=== PATIENT | female | born 1960 | race Caucasian/White ===

== ENCOUNTER 2023-02-17 09:53 | Inpatient (IN) | payer SELFPAY ==
[2023-02-17 09:55] VITALS: BP 119/81; PULSE 73; RESP 20; TEMP 35.8; O2SAT 100; BMI 28.3
--- NOTE | 2023-02-17 09:59 | NURSING ---
NO OLD EKGS
--- NOTE | 2023-02-17 10:12 | EKG12_ITS ---
Test Reason : SYNCOPE Blood Pressure : / mmHG Vent. Rate : 069 BPM Atrial Rate : 069 BPM P-R Int : 168 ms QRS Dur : 102 ms QT Int : 426 ms P-R-T Axes : 050 -16 008 degrees QTc Int : 456 ms Sinus rhythm with occasional Premature ventricular complexes Incomplete right bundle branch block Nonspecific ST abnormality Abnormal ECG Confirmed by JERED DONALDSON, RADAMES ([id number]), newspaper copy editor MERRICK WALTON ([id number]) on 02/20/2023 1:06:27 PM Referred By: TALA Confirmed By:RADAMES LAWTON MD
--- NOTE | 2023-02-17 10:20 | EDS_ITS ---
<Statement entered by Mariana Mckeon MD - 02/17/23 15:22> I have personally performed a face to face assessment of the patient and have reviewed the SOURAV Note. Patient presents after syncopal episode. Patient reports stopping at a rest stop. She had abdominal cramping and had a bowel movement with blood. She states she had some bleeding hemorrhoids recently but passed a lot more blood today. She felt lightheaded and dizzy. She tried to make it out to her but felt lightheaded and dizzy. He states that she was pale and sweaty and had an unsteady gait. She did have a brief syncopal episode but he caught her as she was falling. She did not injure herself. She denies having chest pain or palpitations. Patient sitting upright in bed no acute distress. Head and neck examination unremarkable. Heart is regular rate and rhythm. Lung sounds are clear. Abdomen is soft and nontender. EKG reveals no evidence of acute ischemia. CBC reveals hemoglobin of 9.7. I have no prior values to compare to. Rectal examination in the emergency room did reveal active bright red blood from her rectum. In light of this she is sent for a CT scan of the abdomen pelvis with IV contrast. No significant bowel wall thickening or abnormalities noted. Patient discussed with hospitalist as well as GI and will be admitted for further treatment. HPI History of Present Illness Chief Complaint: Syncope Narrative Narrative: Patient presenting today for evaluation after syncopal episode that occurred this morning. She reports that she was at a bus stop using the restroom and had a bowel movement and was experiencing some abdominal cramping and noticed bright red blood in the toilet and as she was walking out of the bathroom she felt diaphoretic and her reports that she looked pale and he ran over to grab her before she could fall to the ground. She did not hit her head. She is not on any blood thinners. She did not experience any chest pain or shortness of breath prior to the event. She reports that she has been dealing with bleeding hemorrhoids since Monday. She denies any cardiac history, fevers, chills, nausea, vomiting, and melena. PFSH PFSH Medical History no medical history Home Medications NK 02/17/23 [History Last Taken Unknown] Allergy/AdvReac Type Severity Reaction Status Date / Time No Known Allergies Allergy Verified 02/17/23 10:01 Social History Smoking Status: Never smoker ROS ROS ED Constitutional Constitutional ED: Denies chills or fever(s) Eyes Eyes: Denies change in vision Cardiovascular Cardiovascular: Denies chest pain or palpitations Respiratory/Chest Respiratory/Chest: Denies cough or dyspnea Gastrointestinal Gastrointestinal: Reports hematochezia and hemorrhoids; Denies abdominal pain, constipation, diarrhea, nausea or vomiting Genitourinary Genitourinary ED: Denies dysuria, hematuria or urinary urgency Musculoskeletal Musculoskeletal: Denies arthralgias or myalgias Integumentary Denies Abrasions or rash Neurologic Neurologic: Reports weakness; Denies confusion or dizziness EXAM Physical Exam Const Vital Signs: 02/17/23 09:55 02/17/23 09:59 02/17/23 10:04 Temperature 96.5 F L Temperature Source Temporal Pulse Rate 73 Respiratory Rate 20 H Respiratory Effort Normal Non-Labored Normal Respiratory Pattern Normal Blood Pressure 119/81 H Blood Pressure Mean 93 Pulse Ox 100 Oxygen Delivery Method Room Air 02/17/23 13:15 Temperature 97.5 F L Temperature Source Temporal Pulse Rate 76 Respiratory Rate 14 Respiratory Effort Respiratory Pattern Blood Pressure 116/75 Blood Pressure Mean 88 Pulse Ox 97 Oxygen Delivery Method Room Air Positive well nourished, well developed and no apparent distress General Appearance ED: well developed HEENT Reports normocephalic and head/scalp atraumatic Mouth ED: Yes moist mucous membranes normal Eyes PERRL and EOMs intact bilaterally Neck full ROM and supple Chest Wall inspection of chest normal Resp normal respiratory effort and clear to auscultation bilaterally Cardio regular rate and regular rhythm GI soft to palpation, non-tender, non-distended and no masses GI Narrative: Significant bright red bleeding around patient's rectum, external hemorrhoids that are not actively bleeding, on internal exam I am not palpating any internal hemorrhoids. Back/Spine normal ROM and normal to inspection Extremity normal to inspection and full ROM Neuro oriented x3, CN's II-XII intact bilaterally, moves all extremities, no focal motor deficits and no sensory deficits noted Sensorium / Orientation: awake and alert Motor Exam: strength 5/5 throughout Psych mental status grossly normal and thought process normal Skin no rashes or lesions noted and no wounds MDM MDM MDM Narrative Medical decision making narrative: Patient presenting today for evaluation due to a syncopal episode that occurred this morning. She did not have any chest pain or shortness of breath prior to this event. She reports that she has had rectal bleeding since Monday which she describes as pretty severe and states that she thinks that she has lost a lot of blood and has been feeling weak. She denies a history of GI bleeds. She reports a history of hemorrhoids and thinks that that is what is causing her bleeding. She had a little bit of abdominal cramping this morning while using the bathroom but otherwise has not had any abdominal pain. She is well- appearing and in no acute distress, vitals are unremarkable. Labs will be obtained to rule out ACS, leukocytosis, anemia, electrolyte abnormality. She has been given IV fluid. On rectal examination patient did bleed through her underwear, pants, and the bedsheet. She does have bright red blood coming from her rectum, external hemorrhoids without any active bleeding, I am not palpating any internal hemorrhoids. CT scan of the abdomen and pelvis will be obtained to rule out diverticular bleed/mass/other intra-abdominal abnormality and does show moderate stool retention without any other findings. I did talk with Dr. Bocanegra who recommends a colonoscopy since patient has never had one. We did speak with the hospitalist and patient will be admitted in stable condition and is comfortable with plan. Lab Data Attestation: I reviewed the patient's lab results. Lab results narrative: H&H 9.9.1, platelet count 2 9, BMP unremarkable, troponin 7 Labs: Laboratory Results - last 24 hr 02/17/23 02/17/23 10:02 12:14 WBC 5.7 RBC 3.27 L Hgb 9.7 L Hct 31.4 L MCV 96.0 MCH 29.7 MCHC 30.9 L RDW Std Deviation 45.6 H RDW Coeff of Dora 13.0 Plt Count 220 MPV 9.8 Immature Gran % (Auto) 0.500 Neut % (Auto) 33.2 L Lymph % (Auto) 57.3 H [place] % (Auto) 7.3 Eos % (Auto) 1.2 Baso % (Auto) 0.5 Absolute Neuts (auto) 1.9 L Absolute Lymphs (auto) 3.28 Nucleated RBC % 0 Sodium 140 Potassium 3.5 Chloride 105 Carbon Dioxide 32.0 Anion Gap 3 L BUN 13 Creatinine 0.86 Estim Creat Clear Calc 67.65 Est GFR (MDRD) Af Amer 86 Est GFR (MDRD) Non-Af 71 BUN/Creatinine Ratio 15.1 Glucose 151 H Calcium 8.6 Troponin I High Sens 5 7 Radiography X-Ray: Read by ED Physician and Read by Radiologist Diagnostic Testing: Clinical Impression(s) from Imaging Studies Chest X-Ray 02/17/23 10:35 IMPRESSION: Normal x-ray examination of the chest. Electronically Signed: Gideon Obrien MD at 10:55 EDT , Abdomen/Pelvis CT 02/17/23 11:09 IMPRESSION: Hepatic cysts. Moderate amount of fecal material is seen in the rectosigmoid colon. Electronically Signed: Gideon Obrien MD at 12:01 EDT , EKG Initial EKG: Comments: 69 bpm, sinus rhythm with occasional PVCs, incomplete right bundle branch block, reviewed and interpreted by attending ED physician Discharge Plan Dx/Rx/DC Orders Clinical Impression: GIB (gastrointestinal bleeding), Syncope, Weakness Disposition Disposition: Acute Care Hospital [facility] Discharge Date/Time: 02/17/23 13:47
[2023-02-17] MEDS: 0.9% Normal Saline 1,000 ML 1000 ML IV (10:23)
[2023-02-17 10:32] LABS: Absolute Lymphocyte Count 3.28 X10^3/uL (0.83-4.51); Absolute Neutrophil Count 1.9 X10^3/uL (2.0-7.7); Basophil# 0.03 X10^3/uL; Basophil% 0.5 % (0-1); Eosinophil# 0.07 X10^3/uL; Eosinophils% 1.2 % (0-5); Hematocrit 31.4 % (37-47); Hemoglobin 9.7 g/dL (12.0-15.0); Lymphocyte # 3.28 X10^3/ul (0.83-4.51); Lymphocyte % 57.3 % (19-41); Mean Corp Hgb Conc 30.9 g/dL (32-36); Mean Corpuscular Hgb 29.7 pg (27.0-32.0); Mean Platelet Vol. 9.8 fl (6.2-12.0); Monocyte# 0.42 X10^3/uL; Monocyte% 7.3 % (0-10); NRBC Flagged by Analyzer 0 % (0-5); Neutrophil # 1.89 X10^3/uL (2.7-7.7); Neutrophil % 33.2 % (47-70); Platelet Count 220 K/mm3 (150-450); RBC Distribution Width SD 45.6 fl (35.1-43.9); Red Blood Count 3.27 M/mm3 (4.2-5.4); White Blood Count 5.7 K/mm3 (4.4-11.0)
--- NOTE | 2023-02-17 10:35 | RAD_ITS ---
STUDY: X-RAY CHEST REASON FOR EXAM: Female, 62 years old. Chest pain. Syncope. TECHNIQUE: Single AP portable view of the chest. COMPARISON: None. FINDINGS: EKG electrodes are seen. The lungs are clear and expanded. There is no demonstrated pleural abnormality. Normal size heart. Normal mediastinum and vipul. Normal visualized pulmonary arteries. Normal visualized aortic arch and descending thoracic aorta. There are degenerative changes of the visualized thoracic spine. Normal visualized ribs, clavicles, and shoulders. There is no demonstrated abnormality of the visualized soft tissue structures of the upper abdomen. RAD/Chest 1 View (Portable) IMPRESSION: Normal x-ray examination of the chest. Electronically Signed: Gideon Obrien MD at 10:55 EDT ,
[2023-02-17 10:47] LABS: Anion Gap 3 (5-15); BUN 13 mg/dL (7-18); BUN/Creat Ratio 15.1 RATIO (10-20); Calcium,Total 8.6 mg/dL (8.5-10.1); Chloride 105 mmol/L (98-107); Creatinine, Serum 0.86 mg/dL (0.55-1.02); EST Glomerular Filtration Rate 71 mL/min (>60); Est Glom Filt Rate - Afr Amer 86 mL/min (>60); Estimated Creatinine Clearance 67.65 ml/min; Glucose 151 mg/dL (74-106); Potassium 3.5 mmol/L (3.5-5.1); Sodium Level 140 mmol/L (136-145); Troponin-I HS (w/2H Reflex) 5 pg/mL (3.0-54.0)
--- NOTE | 2023-02-17 11:09 | CT_ITS ---
STUDY: CT ABDOMEN AND PELVIS WITH CONTRAST REASON FOR EXAM: Female, 62 years old. Rectal bleed. Syncopal episodes. RADIATION DOSAGE (If Supplied By Facility): CTDIvol = ( 15.92 ) mGy, DLP = ( 879.93 ) mGycm TECHNIQUE: Transaxial images were obtained from the dome of the diaphragm to the symphysis pubis without oral contrast. IV 100mL Isovue-300 was administered. Sagittal and coronal images were reconstructed. Individualized dose optimization techniques were used for this CT. COMPARISON: None. FINDINGS: The visualized lung bases are unremarkable. The visualized portions of the heart are within normal limits. Multiple scattered hepatic cysts. The largest cyst is in the peripheral lateral aspect of the right lobe of the liver and measures 1.9 cm x 2.1 cm. Normal gallbladder and extrahepatic biliary system. Normal spleen. Normal pancreas. Normal bilateral adrenal glands. Normal right kidney. Normal left kidney. Normal visualized stomach. Normal small intestine. Moderate amount of fecal material is seen in the rectosigmoid colon. The appendix is visualized and appears normal. Normal abdominal aorta. Normal inferior vena cava. Normal retroperitoneum. Normal urinary bladder. Normal abdominal wall. Disc space narrowing and degeneration at the L5-S1 level. healed right superior and inferior pubic rami fractures. CT/Abdomen/Pelvis W IV Cont ONLY IMPRESSION: Hepatic cysts. Moderate amount of fecal material is seen in the rectosigmoid colon. Electronically Signed: Gideon Obrien MD at 12:01 EDT ,
[2023-02-17 12:27] LABS: Reflex Troponin-HS? (from REC) Y
[2023-02-17 12:49] LABS: Troponin-I HS 7 pg/mL (3.0-54.0)
[2023-02-17 13:15] VITALS: BP 116/75; PULSE 76; RESP 14; TEMP 36.4; O2SAT 97
--- NOTE | 2023-02-17 13:30 | PCM.HP.STD ---
HPI - General General Date of Admission: 02/17/23 Date of Service: 02/17/23 Chief Complaint: BRBPR HPI Narrative KEKE LOUIE, is a 62 F who denies any significant past medical history who presented to [facility] 02/17/2023 with bright red blood per rectum. Patient reportedly was traveling and stopped at a rest stop and passed bright red blood per rectum in the restroom there began to feel pale and sweaty and dizzy and when she came out caught her she had a syncopal episode. Hemoglobin 9.7 with no baseline noted and bright red blood per rectum appreciated in ED. Hospitalist consulted for admission and GI contacted who agreed to see patient in consultation. Patient evaluated at bedside with present, she reports she has been having blood per rectum since Monday and it was significant enough that she called her brother, Monday she did not have blood but then began bleeding again and was having the bleeding today as well as above. Feeling better after receiving some fluids but says she still thinks she is passing blood. Denies any past medical history or anything like this happening before, denies abdominal pain and reports she had 1 episode of nausea and vomiting today after she was given cayenne pepper and water to drink as well as liquid chlorophyll and she subsequently had 1 episode of emesis but does not presently feel nauseated. 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 Has not seen a physician since she had her children and estimates its been greater than 20 years. [facility] Medical History no medical history Home Medications NK 02/17/23 [History Last Taken Unknown] Allergy/AdvReac Type Severity Reaction Status Date / Time No Known Allergies Allergy Verified 02/17/23 10:01 Social History Smoking Status: Never smoker ROS ROS Narrative General: Alert, oriented, no apparent distress HEENT: Atraumatic, normocephalic Eyes: Anicteric, normal conjunctiva, extraocular movements grossly intact Neck: Supple Respiratory: Clear to auscultation bilaterally, normal respiratory effort Cardiovascular: Regular rate and rhythm GI: Soft, nondistended, slight discomfort diffusely without rebound, guarding, rigidity. Reportedly bright red blood coming from rectum Extremities: No edema Musculoskeletal: Moving all extremities Neuro: No overt focal neurological deficits Skin: No rashes appreciated Psych: Cooperative Vital Signs Vital Signs Vital Signs: 02/17/23 09:55 02/17/23 09:59 02/17/23 10:04 Temperature 96.5 F L Temperature Source Temporal Pulse Rate 73 Respiratory Rate 20 H Respiratory Effort Normal Non-Labored Normal Respiratory Pattern Normal Blood Pressure 119/81 H Blood Pressure Mean 93 Pulse Ox 100 Oxygen Delivery Method Room Air 02/17/23 13:15 Temperature 97.5 F L Temperature Source Temporal Pulse Rate 76 Respiratory Rate 14 Respiratory Effort Respiratory Pattern Blood Pressure 116/75 Blood Pressure Mean 88 Pulse Ox 97 Oxygen Delivery Method Room Air Weight Weight: 81.9 kg Body Mass Index (BMI) 28.3 Physical Exam Narrative General: Alert, oriented, no apparent distress HEENT: Atraumatic, normocephalic Eyes: Anicteric, normal conjunctiva, extraocular movements grossly intact Neck: Supple Respiratory: Clear to auscultation bilaterally, normal respiratory effort Cardiovascular: Regular rate and rhythm GI: Soft, mild discomfort palpating diffusely without rebound, guarding, rigidity Extremities: No edema Musculoskeletal: Moving all extremities Neuro: No overt focal neurological deficits Skin: No rashes appreciated Psych: Cooperative Results Lab / Micro Data 02/17/23 10:02 02/17/23 10:02 Labs: Laboratory Results - last 24 hr 02/17/23 10:02: WBC 5.7, RBC 3.27 L, Hgb 9.7 L, Hct 31.4 L, MCV 96.0, MCH 29.7, MCHC 30.9 L, RDW Std Deviation 45.6 H, RDW Coeff of Dora 13.0, Plt Count 220, MPV 9.8, Immature Gran % (Auto) 0.500, Neut % (Auto) 33.2 L, Lymph % (Auto) 57.3 H, [place] % (Auto) 7.3, Eos % (Auto) 1.2, Baso % (Auto) 0.5, Absolute Neuts (auto) 1.9 L, Absolute Lymphs (auto) 3.28, Nucleated RBC % 0, Sodium 140, Potassium 3.5, Chloride 105, Carbon Dioxide 32.0, Anion Gap 3 L, BUN 13, Creatinine 0.86, Estim Creat Clear Calc 67.65, Est GFR (MDRD) Af Amer 86, Est GFR (MDRD) Non-Af 71, BUN/Creatinine Ratio 15.1, Glucose 151 H, Calcium 8.6, Troponin I High Sens 5 02/17/23 12:14: Troponin I High Sens 7 Radiology Impression Chest X-Ray 02/17/23 10:35 IMPRESSION: Normal x-ray examination of the chest. Electronically Signed: Gideon Obrien MD at 10:55 EDT , Abdomen/Pelvis CT 02/17/23 11:09 IMPRESSION: Hepatic cysts. Moderate amount of fecal material is seen in the rectosigmoid colon. Electronically Signed: Gideon Obrien MD at 12:01 EDT , Assessment & Plan Assessment/Plan (1) GIB (gastrointestinal bleeding): PLAN: Plan #Bright red blood per rectum secondary to GI bleed, suspect lower -Patient initially reported having some hemorrhoidal bleeding and not having any significant bleeding until today however on my exam reported she has been having significant bleeding since Monday. -No known baseline hemoglobin, at present is 9.7, will trend we will also type and cross for 2 units -Do not feel orthostatic vital signs are necessary as I suspect they are positive- patient already had symptoms of orthostasis and syncope prior to arrival -Continue IVF -We will start PPI as she has been consuming up to 12 cayenne peppers a day and water and this may cause gastric irritation/increase stomach acid production -GI consult #DVT ppx: SCDs due to GI bleed Sabina Lowry MD Time spent in the patient's overall evaluation,decision-making process, review of diagnostic data, adjustment of management, discussion with other providers, nursing nursing and ancillary staff involved in patient's care documentation, 56 minutes Charges/Coding Visit Charges Inpatient E&M: 96947 Init Hosp L2
[2023-02-17 14:03] VITALS: BMI 28.3
[2023-02-17 14:12] LABS: Hematocrit 30.1 % (37-47); Hemoglobin 9.9 g/dL (12.0-15.0); Mean Corp Hgb Conc 32.9 g/dL (32-36); Mean Corpuscular Hgb 30.8 pg (27.0-32.0); Mean Corpuscular Volume 93.8 fL (81-99); Mean Platelet Vol. 9.3 fl (6.2-12.0); Platelet Count 207 K/mm3 (150-450); RBC Distribution Width CV 12.8 % (11.6-14.6); RBC Distribution Width SD 44.4 fl (35.1-43.9); Red Blood Count 3.21 M/mm3 (4.2-5.4); White Blood Count 7.1 K/mm3 (4.4-11.0)
[2023-02-17] MEDS: 0.9% Normal Saline 1,000 ML 100 ML IV (14:37)
[2023-02-17 14:40] VITALS: BP 127/82; PULSE 68; RESP 18; TEMP 36.6; O2SAT 99
[2023-02-17 16:53] LABS: Hematocrit 28.7 % (37-47); Mean Corp Hgb Conc 31.4 g/dL (32-36); Mean Corpuscular Hgb 29.7 pg (27.0-32.0); Mean Corpuscular Volume 94.7 fL (81-99); Mean Platelet Vol. 9.4 fl (6.2-12.0); Platelet Count 194 K/mm3 (150-450); RBC Distribution Width CV 12.9 % (11.6-14.6); RBC Distribution Width SD 44.6 fl (35.1-43.9); Red Blood Count 3.03 M/mm3 (4.2-5.4); White Blood Count 6.4 K/mm3 (4.4-11.0)
[2023-02-17] MEDS: Polyethylene Glycol 3350 BOWEL PREP PO (17:02)
[2023-02-17] MEDS: Bisacodyl 5 MG Tablet 20 MG PO (17:02)
--- NOTE | 2023-02-17 17:38 | EX.PCM.CON.G ---
HPI Consult Data Date of Consult: 02/17/23 HPI Narrative Reason for Consultation: GI bleed HPI Narrative: KEKE LOUIE, is a 62 F who presents after syncopal episode. Patient reports stopping at a rest stop. She had abdominal cramping and had a bowel movement with blood. She states she had some bleeding hemorrhoids recently but passed a lot more blood today. She felt lightheaded and dizzy. She tried to make it out to her but felt lightheaded and dizzy. He states that she was pale and sweaty and had an unsteady gait. She did have a brief syncopal episode but he caught her as she was falling. She did not injure herself. She denies having chest pain or palpitations. EKG reveals no evidence of acute ischemia. CBC reveals hemoglobin of 9.7. I have no prior values to compare to. Rectal examination in the emergency room did reveal active bright red blood from her rectum. In light of this she is sent for a CT scan of the abdomen pelvis with IV contrast. No significant bowel wall thickening or abnormalities noted. [facility] Medical History no medical history Home Medications NK 02/17/23 [History Last Taken Unknown] Allergy/AdvReac Type Severity Reaction Status Date / Time No Known Allergies Allergy Verified 02/17/23 10:01 Social History Smoking Status: Never smoker ROS ROS Narrative General: Alert, oriented, no apparent distress HEENT: Atraumatic, normocephalic Eyes: Anicteric, normal conjunctiva, extraocular movements grossly intact Neck: Supple Respiratory: Clear to auscultation bilaterally, normal respiratory effort Cardiovascular: Regular rate and rhythm GI: Soft, nondistended, slight discomfort diffusely without rebound, guarding, rigidity. Reportedly bright red blood coming from rectum Extremities: No edema Musculoskeletal: Moving all extremities Neuro: No overt focal neurological deficits Skin: No rashes appreciated Psych: Cooperative Physical Exam Narrative General: Alert, oriented, no apparent distress HEENT: Atraumatic, normocephalic Eyes: Anicteric, normal conjunctiva, extraocular movements grossly intact Neck: Supple Respiratory: Clear to auscultation bilaterally, normal respiratory effort Cardiovascular: Regular rate and rhythm GI: Soft, mild discomfort palpating diffusely without rebound, guarding, rigidity Extremities: No edema Musculoskeletal: Moving all extremities Neuro: No overt focal neurological deficits Skin: No rashes appreciated Psych: Cooperative Lab / Micro Data 02/17/23 16:39 02/17/23 10:02 Labs: Laboratory Results - last 24 hr 02/17/23 10:02: WBC 5.7, RBC 3.27 L, Hgb 9.7 L, Hct 31.4 L, MCV 96.0, MCH 29.7, MCHC 30.9 L, RDW Std Deviation 45.6 H, RDW Coeff of Dora 13.0, Plt Count 220, MPV 9.8, Immature Gran % (Auto) 0.500, Neut % (Auto) 33.2 L, Lymph % (Auto) 57.3 H, [place] % (Auto) 7.3, Eos % (Auto) 1.2, Baso % (Auto) 0.5, Absolute Neuts (auto) 1.9 L, Absolute Lymphs (auto) 3.28, Nucleated RBC % 0, Sodium 140, Potassium 3.5, Chloride 105, Carbon Dioxide 32.0, Anion Gap 3 L, BUN 13, Creatinine 0.86, Estim Creat Clear Calc 67.65, Est GFR (MDRD) Af Amer 86, Est GFR (MDRD) Non-Af 71, BUN/Creatinine Ratio 15.1, Glucose 151 H, Calcium 8.6, Troponin I High Sens 5 02/17/23 12:14: Troponin I High Sens 7 02/17/23 13:45: WBC 7.1, RBC 3.21 L, Hgb 9.9 L, Hct 30.1 L, MCV 93.8, MCH 30.8, MCHC 32.9 D, RDW Std Deviation 44.4 H, RDW Coeff of Dora 12.8, Plt Count 207, MPV 9.3, Blood Type O POSITIVE, Antibody Screen NEGATIVE, Crossmatch See Detail 02/17/23 16:39: WBC 6.4, RBC 3.03 L, Hgb 9.0 L, Hct 28.7 L, MCV 94.7, MCH 29.7, MCHC 31.4 L, RDW Std Deviation 44.6 H, RDW Coeff of Dora 12.9, Plt Count 194, MPV 9.4 Radiology Impression Chest X-Ray 02/17/23 10:35 IMPRESSION: Normal x-ray examination of the chest. Electronically Signed: Gideon Obrien MD at 10:55 EDT , Abdomen/Pelvis CT 02/17/23 11:09 IMPRESSION: Hepatic cysts. Moderate amount of fecal material is seen in the rectosigmoid colon. Electronically Signed: Gideon Obrien MD at 12:01 EDT , Assessment & Plan Assessment/Plan (1) GIB (gastrointestinal bleeding): QUALIFIERS: GI bleed type/associated pathology: unspecified gastrointestinal hemorrhage type Qualified Code(s): K92.2 - Gastrointestinal hemorrhage, unspecified PLAN: Plan 62-year-old with persistent lower GI bleeding comes in after a presyncopal and syncopal episode. The differential diagnosis does include lower GI bleed secondary to upper GI bleed with rapid transit, diverticular bleed, ischemic colitis, ulcerative colitis, less likely colon cancer. She will undergo colonoscopy to evaluate her lower GI tract. She was explained alternatives, risk, benefits including not withstanding bleeding, infection, sepsis, perforation, need for emergent surgery . She have an ASA of 2. Charges/Coding Visit Charges Inpatient E&M: 91614 Init Hosp L2
[2023-02-17 21:24] VITALS: BP 117/66; PULSE 82; RESP 18; TEMP 36.3; O2SAT 98
[2023-02-17 22:28] LABS: Hematocrit 28.9 % (37-47); Hemoglobin 9.1 g/dL (12.0-15.0); Mean Corp Hgb Conc 31.5 g/dL (32-36); Mean Corpuscular Hgb 30.2 pg (27.0-32.0); Mean Platelet Vol. 9.4 fl (6.2-12.0); Platelet Count 203 K/mm3 (150-450); RBC Distribution Width CV 12.9 % (11.6-14.6); RBC Distribution Width SD 44.9 fl (35.1-43.9); Red Blood Count 3.01 M/mm3 (4.2-5.4); White Blood Count 6.7 K/mm3 (4.4-11.0)
[2023-02-18] VITALS (9 sets, daily range): BP systolic 97–129; BP diastolic 62–83; PULSE 68–83; RESP 14–18; TEMP 35.7–36.7; O2SAT 96–100; BMI 28.3
[2023-02-18 02:18] LABS: Hemoglobin 7.9 g/dL (12.0-15.0); Mean Corp Hgb Conc 31.6 g/dL (32-36); Mean Corpuscular Hgb 29.9 pg (27.0-32.0); Mean Corpuscular Volume 94.7 fL (81-99); Mean Platelet Vol. 9.3 fl (6.2-12.0); Platelet Count 177 K/mm3 (150-450); RBC Distribution Width CV 12.9 % (11.6-14.6); RBC Distribution Width SD 45.1 fl (35.1-43.9); Red Blood Count 2.64 M/mm3 (4.2-5.4); White Blood Count 5.5 K/mm3 (4.4-11.0)
[2023-02-18 06:19] LABS: Absolute Neutrophil Count 3.6 X10^3/uL (2.0-7.7); Basophil# 0.03 X10^3/uL; Basophil% 0.5 % (0-1); Eosinophil# 0.09 X10^3/uL; Eosinophils% 1.4 % (0-5); Hematocrit 26.7 % (37-47); Hemoglobin 8.9 g/dL (12.0-15.0); Lymphocyte % 34.8 % (19-41); Mean Corp Hgb Conc 33.3 g/dL (32-36); Mean Corpuscular Hgb 31.3 pg (27.0-32.0); Mean Platelet Vol. 9.4 fl (6.2-12.0); Monocyte% 9.1 % (0-10); NRBC Flagged by Analyzer 0 % (0-5); Neutrophil # 3.57 X10^3/uL (2.7-7.7); Platelet Count 200 K/mm3 (150-450); Red Blood Count 2.84 M/mm3 (4.2-5.4); White Blood Count 6.6 K/mm3 (4.4-11.0)
--- NOTE | 2023-02-18 07:05 | COLBX_PTH ---
PATIENT: KEKE LOUIE LOC: [facility] U#:[id number] AGE/SX: 62/F ROOM: [facility] RE02/17/[address]: Dr. Loyda Coyle MD : 1960 BED: 1 DIS: 02/18/2023 SPEC #: [id number] RECD: 02/18/23 08:06 STATUS: JAYLIN PACKER #: [id number] JOSE: 02/18/23 07:[address]: Arthur Bocanegra DEPT: SURGICAL PATHOLOGY RECD BY: Madina Vides ENTERED: 02/20/23 08:39 SP TYPE: COLON BX OTHR DR: MD Dr. Sabina Ware MD No Primary Care Phys Tissues: COLON BIOPSY Procedures: Surgery Specimen Level IV Comments: @ Ordering doctor for SUIV edited from to @ by RGOOD at 02/20/23 1526 @ Submitting doctor edited from to @ by RGOOD at 02/20/23 1526 HEADER OPERATION: Colonoscopy PRE-OP DIAGNOSIS: GI bleed TISSUE SUBMITTED: Hepatic flexure MICROSCOPIC DIAGNOSIS Hepatic flexure polyp, biopsy: Fragments of tubular adenoma. LEXIE:neelima 02/21/2023 MICROSCOPIC DESCRIPTION Slides are reviewed. GROSS DESCRIPTION Received in fixative is one container labeled with the patient's name and designated hepatic flexure polyp. The specimen consists of multiple irregular fragments of light azul soft tissue that in aggregate measure 0.6 x 0.2 x 0.1 cm. The specimen is totally submitted in one cassette. / LEXIE:neelima 02/20/2023 TC:1 CPT: 27159
[2023-02-18 07:16] LABS: ALB/GLOB Ratio 0.9 RATIO (0.9-2.4); AST(SGOT) 19 U/L (15-37); Alanine Aminotransfer ALT/SGPT 22 U/L (13-56); Albumin, Serum 2.9 g/dL (3.2-5.0); Alkaline Phosphatase 59 U/L (45-117); Anion Gap 4 (5-15); BUN 8 mg/dL (7-18); BUN/Creat Ratio 10.7 RATIO (10-20); Calcium,Total 8.1 mg/dL (8.5-10.1); Chloride 110 mmol/L (98-107); Creatinine, Serum 0.75 mg/dL (0.55-1.02); EST Glomerular Filtration Rate 84 mL/min (>60); Est Glom Filt Rate - Afr Amer 101 mL/min (>60); Estimated Creatinine Clearance 74.67 ml/min; Globulin 3.4 g/dL (2.2-4.2); Glucose 112 mg/dL (74-106); Magnesium 2.3 mg/dL (1.6-2.6); Potassium 3.5 mmol/L (3.5-5.1); Protein, Total 6.3 g/dL (6.4-8.2); Sodium Level 142 mmol/L (136-145); Thyroid Stim Hormone (TSH) 4.53 uIU/mL (0.358-3.74)
[2023-02-18] MEDS: Lubricating Jelly 60 GM Tube 30 GM (07:21)
--- NOTE | 2023-02-18 07:47 | OP.COLON_ITS ---
Patient Name: Maira Hooks Procedure Date: 02/18/2023 6:54 AM Date of : 1960 Age: 62 Procedure: Colonoscopy Indications: Hematochezia Providers: Arthur Bocanegra DO Medicines: Monitored Anesthesia Care Patient Profile: This is a 62 year old female. Refer to note in patient chart for documentation of history and physical. Last Colonoscopy: none. The patient's first colonoscopy is today. Complications: No immediate complications. Procedure: Pre-Anesthesia Assessment: - Prior to the procedure, a History and Physical was performed, and patient medications and allergies were reviewed. The patient is competent. The risks and benefits of the procedure and the sedation options and risks were discussed with the patient. All questions were answered and informed consent was obtained. Patient identification and proposed procedure were verified by the physician. Mental Status Examination: alert and oriented. Prophylactic Antibiotics: The patient does not require prophylactic antibiotics. Prior Anticoagulants: The patient has taken no previous anticoagulant or antiplatelet agents. ASA Grade Assessment: II - A patient with mild systemic disease. After reviewing the risks and benefits, the patient was deemed in satisfactory condition to undergo the procedure. The anesthesia plan was to use monitored anesthesia care (MAC). Immediately prior to administration of medications, the patient was re-assessed for adequacy to receive sedatives. The heart rate, respiratory rate, oxygen saturations, blood pressure, adequacy of pulmonary ventilation, and response to care were monitored throughout the procedure. The physical status of the patient was re-assessed after the procedure. After I obtained informed consent, the scope was passed under direct vision. Throughout the procedure, the patient's blood pressure, pulse, and oxygen saturations were monitored continuously. The Colonoscope was introduced through the anus and advanced to the terminal ileum. The colonoscopy was performed without difficulty. The patient tolerated the procedure well. The quality of the bowel preparation was fair. Scope In: 7:21:52 AM Scope Withdrawal Time 0 hours 11 minutes 15 seconds Scope Out: 7:38:41 AM Total Procedure Duration Time 0 hours 16 minutes 49 seconds Findings: The perianal and digital rectal examinations were normal. Multiple small and large-mouthed diverticula were found in the entire colon. A 7 mm polyp was found in the hepatic flexure. The polyp was sessile. The polyp was removed with a hot snare. Resection and retrieval were complete. Verification of patient identification for the specimen was done. Estimated blood loss was minimal. The terminal ileum appeared normal. Impression: - Preparation of the colon was fair. - Diverticulosis in the entire examined colon. Likely bleeding so worse was from a diverticular bleed. - One 7 mm polyp at the hepatic flexure, removed with a hot snare. Resected and retrieved. - The examined portion of the ileum was normal. Recommendation: - Discharge patient to home. - Resume previous diet. - Continue present medications. - Await pathology results. - Repeat colonoscopy in 5 years for surveillance. Procedure Code(s): --- Professional --- 16762, Colonoscopy, flexible; with removal of tumor(s), polyp(s), or other lesion(s) by snare technique CPT copyright 2017 [employer]. All rights reserved. The codes documented in this report are preliminary and upon death surveys coder review may be revised to meet current compliance requirements. Arthur Bocanegra DO 02/18/2023 7:45:51 AM This report has been signed electronically. Number of Addenda: 0 Note Initiated On: 02/18/2023 6:54 AM
--- NOTE | 2023-02-18 07:47 | OP.CCLET_ITS ---
02/18/2023 No Primary Care Physician Re : Colonoscopy procedure for Maira Hooks Dear Care Physician This procedure was performed on Saturday, February 18, 2023. My impressions and recommendations are as follows: Impressions : - Preparation of the colon was fair. - Diverticulosis in the entire examined colon. Likely bleeding so worse was from a diverticular bleed. - One 7 mm polyp at the hepatic flexure, removed with a hot snare. Resected and retrieved. - The examined portion of the ileum was normal. Recommendations : - Discharge patient to home. - Resume previous diet. - Continue present medications. - Await pathology results. - Repeat colonoscopy in 5 years for surveillance. My findings are described in the full procedure note, which is enclosed. If I can be of further assistance, please feel free to contact me at . Sincerely, Atrhur Bocanegra, 02/18/2023 7:45:51 AM This report has been signed electronically.
--- NOTE | 2023-02-18 11:29 | DS.PCM_ITS ---
Providers Date of Admission: 02/17/23 Date of Discharge: 02/18/23 Primary Care Physician: Mara Primary Care Phys Consultations 02/17/23 13:48 Consult: Gastroenterology Routine Consulting Provider: Leoncio Espino Reason for Consult: GIB w/ syncope EMERGENT Consult: No MD Notified: Yes Date Notified: 02/17/23 Time Notified: 13:32 Method of Notification: ED Physician Initiated Reason For Visit: SYNCOPE Diagnosis Discharge Diagnosis (1) GIB (gastrointestinal bleeding): Status: Acute Code(s): K92.2 - Gastrointestinal hemorrhage, unspecified Qualifiers: GI bleed type/associated pathology: unspecified gastrointestinal hemorrhage type Qualified Code(s): K92.2 - Gastrointestinal hemorrhage, unspecified Medications at Discharge Home Medications pantoprazole 40 mg tablet,delayed release 40 mg PO DAILY #30 tabs 02/18/23 Hospital Course Operations None Procedures Colonoscopy Summary of Care Provided Minutes Spent on Discharge: 55 Hospital Course: Patient is a 62-year-old female with no signal past medical history was admitted through the ED on 02/17/2023 with a complaint of bright red blood per rectum. She had been traveling and says she did stopped after a stop and passed bright red blood per rectum in the restroom. She subsequently started feeling dizzy and lightheaded. She passed out after she came out of the restroom. On admission her hemoglobin was 9.7. Patient says she has been having bright red blood per rectum for about 3 days prior to admission but had not come to the hospital. She had 1 episode assisted nausea and vomiting and she had been taking cayenne pepper and multiple other supplements. She had not seen a doctor in many years and said was likely longer than 20 years. She was admitted and managed for lower GI bleed. Gastroenterology was consulted. She had colonoscopy on 02/18/2023 which showed diverticulosis in the entire examined colon, with bleeding thought to have been due to a diverticular bleed; a single 7mm polyp was removed. Patient remained stable after procedure, and was able to tolerate a soft diet. She was counseled on a high fiber diet, and counseled to abstain from her cayenne drinks. Gastroenterology recommended the patient could be discharged. She was given a prescription for p.o. pantoprazole 40 mg daily and is to follow- up with her primary care doctor and gastroenterology within 1 to 2 weeks. Patient seen and examined prior to discharge. She had no active complaints and had an uneventful night. Review of systems otherwise negative. Labs and vitals reviewed. Home medication reviewed and reconciled. Physical Exam Const alert, oriented x3 and no apparent distress General Appearance: cooperative, comfortable, well kempt and well developed Orientation / Consciousness: awake Exam Limitations: no limitations HEENT normocephalic, head/scalp atraumatic, hearing grossly normal bilaterally, moist oral mucous membranes and oropharynx normal Mouth: oral and palatal mucosa normal Eyes PERRL, EOMs intact bilaterally and conjunctivae normal Neck no lymphadenopathy and supple Resp normal respiratory effort, no retractions, no use of accessory muscles and clear to auscultation bilaterally Cardio regular rate, regular rhythm, S1 normal heart sound, S2 normal heart sound and no murmurs GI normal to inspection, nondistended, normoactive bowel sounds, soft to palpation, non-tender and non-distended Extremity normal to inspection, full ROM and no clubbing, cyanosis or edema Skin no rashes or lesions noted Neuro oriented x3, CN's II-XII intact bilaterally, moves all extremities and no focal motor deficits Sensorium / Orientation: awake and alert Motor Exam: strength 5/5 throughout Psych affect normal Weight / BMI Weight Weight: 175 lb 4.28 oz Body Mass Index (BMI) 28.3 ABG / Lab / Microbiology Data 02/18/23 06:01 02/18/23 06:01 Laboratory: Laboratory Results - last 24 hr 02/17/23 12:14: Troponin I High Sens 7 02/17/23 13:45: WBC 7.1, RBC 3.21 L, Hgb 9.9 L, Hct 30.1 L, MCV 93.8, MCH 30.8, MCHC 32.9 D, RDW Std Deviation 44.4 H, RDW Coeff of Dora 12.8, Plt Count 207, MPV 9.3, Blood Type O POSITIVE, Antibody Screen NEGATIVE, Crossmatch See Detail 02/17/23 16:39: WBC 6.4, RBC 3.03 L, Hgb 9.0 L, Hct 28.7 L, MCV 94.7, MCH 29.7, MCHC 31.4 L, RDW Std Deviation 44.6 H, RDW Coeff of Dora 12.9, Plt Count 194, MPV 9.4 02/17/23 22:06: WBC 6.7, RBC 3.01 L, Hgb 9.1 L, Hct 28.9 L, MCV 96.0, MCH 30.2, MCHC 31.5 L, RDW Std Deviation 44.9 H, RDW Coeff of Dora 12.9, Plt Count 203, MPV 9.4 02/18/23 02:08: WBC 5.5, RBC 2.64 L, Hgb 7.9 L, Hct 25.0 L, MCV 94.7, MCH 29.9, MCHC 31.6 L, RDW Std Deviation 45.1 H, RDW Coeff of Dora 12.9, Plt Count 177, MPV 9.3 02/18/23 06:01: WBC 6.6, RBC 2.84 L, Hgb 8.9 L, Hct 26.7 L, MCV 94.0, MCH 31.3, MCHC 33.3 D, RDW Std Deviation 45.0 H, RDW Coeff of Dora 13.0, Plt Count 200, MPV 9.4, Immature Gran % (Auto) 0.200, Neut % (Auto) 54.0, Lymph % (Auto) 34.8, Lawrence % (Auto) 9.1, Eos % (Auto) 1.4, Baso % (Auto) 0.5, Absolute Neuts (auto) 3.6, Absolute Lymphs (auto) 2.30, Nucleated RBC % 0, Sodium 142, Potassium 3.5, Chloride 110 H, Carbon Dioxide 28.0, Anion Gap 4 L, BUN 8, Creatinine 0.75, Estim Creat Clear Calc 74.67, Est GFR (MDRD) Af Amer 101, Est GFR (MDRD) Non-Af 84, BUN/Creatinine Ratio 10.7, Glucose 112 H, Calcium 8.1 L, Magnesium 2.3, Total Bilirubin 0.30, AST 19, ALT 22, Alkaline Phosphatase 59, Total Protein 6.3 L, Albumin 2.9 L, Globulin 3.4, Albumin/Globulin Ratio 0.9, TSH 4.53 H Radiography Diagnostic Testing: Radiology Impression Abdomen/Pelvis CT 02/17/23 11:09 IMPRESSION: Hepatic cysts. Moderate amount of fecal material is seen in the rectosigmoid colon. Electronically Signed: Gideon Obrien MD at 12:01 EDT , D/C Instructions Discharge Diet: Low fat / Low cholesterol and - (high fiber diet) Weight Bearing Status: Weight bearing as tolerated and Full weight bearing Call your doctor if you observe: Fever of 101 or Higher, Shortness of breath, Dizziness, Swelling in the ankles, Chest pain and Increased palpitations (irregular heartbeat) Meaningful Use Info Meaningful Use Diagnoses (Choose all that apply): None applicable Discharge Plan Admission Admit Date/Time: 02/17/23 13:30 Primary Reason for Your Visit: lower GI bleed Attending Provider: Loyda Coyle Primary Care Provider: Care Physician,No Primary Consulting Providers: Sabina Lowry Instructions Patient Instructions: ED Diverticulosis Additional Instructions / Restrictions: take a high fiber diet to prevent constipation which can aggravate diverticulosis. Discharge Orders/Prescriptions Prescriptions: New pantoprazole 40 mg tablet,delayed release (DR/EC) 40 mg PO DAILY Qty: 30 2RF Referrals / Follow Up: Arthur Bocanegra DO [Med Staff - Active Staff] - Within 2 Weeks Care Physician,No Primary [Primary Care Provider] - [facility] Doctor,Out of [Non-Staff] - Disposition Disposition (needs filled in before D/C Order can be placed): Home, Self Care Charges/Coding Visit Charges Inpatient E&M: 39988 Disch Hosp >30min
--- NOTE | 2023-02-18 11:29 | DCINST_ITS ---
Discharge Instructions Diet Discharge Diet: Low fat / Low cholesterol and - (high fiber diet) Activity Discharge Activity: Return to Normal Activity Weight Bearing Status: Weight bearing as tolerated and Full weight bearing Dressing / Incision Call your doctor if you observe: Fever of 101 or Higher, Shortness of breath, Dizziness, Swelling in the ankles, Chest pain and Increased palpitations (irregular heartbeat) Follow Up Care Test Results: Test results from this visit will be discussed in further detail at your follow- up appointment, if applicable. Discharge Plan Admission Admit Date/Time: 02/17/23 13:30 Primary Reason for Your Visit: lower GI bleed Attending Provider: Loyda Coyle Primary Care Provider: Care Physician,No Primary Consulting Providers: Sabina Lowry Instructions Patient Instructions: ED Diverticulosis Additional Instructions / Restrictions: take a high fiber diet to prevent constipation which can aggravate diverticulosis. Discharge Orders/Prescriptions Prescriptions: New pantoprazole 40 mg tablet,delayed release (DR/EC) 40 mg PO DAILY Qty: 30 2RF Referrals / Follow Up: Arthur Bocanegra DO [Med Staff - Active Staff] - Within 2 Weeks Care Physician,No Primary [Primary Care Provider] - [facility] Doctor,Out of [Non-Staff] - Disposition Disposition (needs filled in before D/C Order can be placed): Home, Self Care
--- NOTE | 2023-02-18 12:00 | CASEMGMT ---
RN DEMETRICE Face to Face with patient for initial transition planning/care coordination assessment. RN CM introduced self and role at [facility]. Patient lying in bed, alert and oriented, at bedside. Patient willing to participate in assessment and is able to answer all questions appropriately. Care providers, pharmacy, and demographics verified. Patient wishes to discharge home, denies need for home health at this time. Patient states she has no further needs or concerns at this time. CM to follow for discharge planning needs that may arise. PCP: Patient has PCP back home in [place] Specialists: none Preferred Pharmacy: [facility] [place] at [place] Insurance: Commercial other Prescription Benefit: none Living Will/HPOA: none LNOK: Living Arrangements: Patient lives with in a single story home with 4 steps and railing to enter the home. Patient states she is independent at home. Transportation: driving service DME/HHC: Patient has shower chair, raised toilet, cane, and grab bars at home. No previous HHC or SNF. Disposition Plan: Patient to discharge home with family support and follow-up plans in place. Claudia HILL, RN, CM
== END 2023-02-18 14:08 | disposition home or self-care (01) | DRG 379 ==
LOC: ED 10:31 → PCU 13:37
PROVIDERS: Internal Medicine Gastroenterology; Physician Assistant; Admitting Provider Internal Medicine; Emergency Provider Emergency Medicine; Visit Provider Student in an Organized Health Care Education/Training Program
PROC: 0DJD8ZZ Inspection of Lower Intestinal Tract, Via Natural or Artificial Opening Endoscopic (ICD-10-PCS; CPT 45378; principal; 2023-02-18 07:00)
DX: K57.31 Diverticulosis of large intestine without perforation or abscess with bleeding (principal); K63.5 Polyp of colon; K64.4 Residual hemorrhoidal skin tags; R55 Syncope and collapse
CPT/HCPCS: 36415; 71045; 74177; 80048; 80053; 83735; 84443; 84484; 85025; 85027; 86850; 86900; 86901; 86920; 86922; 88305; 93005; 99285; J7030; Q9967; A4216